=== PATIENT | female | born 1995 | race Two or more races ===

== ENCOUNTER 2020-11-17 17:42 | Inpatient (IN) | payer OTHER, MEDICAID ==
[~2020-11-17] VITALS: Ht 157.5 cm; Wt 52.6 kg
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
--- NOTE | 2020-11-17 17:55 | NUR ---
JG JACOBSEN AT BEDSIDE
--- NOTE | 2020-11-17 18:23 | NUR ---
CALLED DR. BONILLA SPEAKING WITH DR. NASH.
--- NOTE | 2020-11-17 18:39 | NUR ---
TEXTED DR. GODINEZ FOR MRI APPROVAL.
--- NOTE | 2020-11-17 19:09 | NUR ---
REPORT GIVEN TO MAURA ARZOLA FOR YA
--- NOTE | 2020-11-17 20:15 | NUR ---
[phone] Pt Father Al
--- NOTE | 2020-11-17 20:16 | NUR ---
PT ABLE TO MOVE LOWER EXT, STATING SHE IS UNABLE TO AMBULATE. MD AWARE.
[2020-11-17 20:32] LABS: BASOPHILS # (AUTO) 0.1 /CMM (0.0-0.2); BASOPHILS % (AUTO) 0.5 % (0.0-2.0); EOSINOPHILS % (AUTO) 0.4 % (0.0-6.0); HEMATOCRIT 39 % (33-45); LYMPHOCYTES # (AUTO) 2.2 /CMM (0.8-4.8); LYMPHOCYTES % (AUTO) 18.7 % (20.0-44.0); MEAN CORPUSCULAR HGB CONC 33 g/dl (31.0-36.0); MEAN CORPUSCULAR VOLUME 89 fL (82-100); MONOCYTES # (AUTO) 0.7 /CMM (0.1-1.30); MONOCYTES % (AUTO) 5.7 % (2.0-12.0); NEUTROPHILS # (AUTO) 8.6 /CMM (1.8-8.9); NEUTROPHILS % (AUTO) 74.7 % (43.0-81.0); PLATELET COUNT (AUTO) 294 /CMM (150-450); RED BLOOD CELL COUNT(AUTO) 4.41 MIL/uL (4.0-5.2); WHITE BLOOD COUNT (AUTO) 11.5 K/uL (4.3-11.0)
[2020-11-17 20:42] LABS: CALCIUM, SERUM 9.4 mg/dL (8.5-10.1); CREATININE 0.9 mg/dL (0.6-1.3); MAGNESIUM 2.1 mg/dL (1.8-2.4); POTASSIUM 3.2 mmol/L (3.5-5.1)
[2020-11-17] MEDS ORDERED: POTASSIUM CHLORIDE 20 MEQ TAB.PRT.SR PO ONE ×2 (21:29→21:30)
--- NOTE | 2020-11-17 22:10 | NUR ---
ROMARIOID SWABBED, SENT TO LAB.
--- NOTE | 2020-11-17 22:10 | NUR ---
PT IN BED CRYING, STATING "I DO NOT UNDERSTAND WHY I CAN NOT WALK" PT AWARE SHE WILL BE ADMITTED.
[2020-11-17] MEDS ORDERED: ACETAMINOPHEN 325 MG TABLET PO PRN (22:30)
[2020-11-17] MEDS ORDERED: Z GUARD REMEDY 2 OZ OINT TP PRN (22:30)
[2020-11-17] MEDS ORDERED: ONDANSETRON HCL/PF 4 MG/2 ML VIAL IVP PRN (22:30)
[2020-11-17] MEDS ORDERED: MAG HYDROX/AL HYDROX/SIMETH 30 ML UDC PO PRN (22:30)
[2020-11-17] MEDS ORDERED: MAGNESIUM HYDROXIDE 30 ML UDC PO PRN (22:30)
--- NOTE | 2020-11-17 23:00 | NUR ---
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
--- NOTE | 2020-11-17 23:14 | NUR ---
PT ASKED TO AMBULATE TO THE RESTROOM. WHILE TRYING TO HELP PT AMBULATED OUT OF THE BED, PT WAS ABLE TO MOVE HER LEGS (WHILE ON THE BED). ONCE PT HAD HER LEGS OFF THE BED SHE CRIED AND STATED "OH MY GOD, WHY IS THIS HAPPENING TO ME, I CAN NOT USE MY LEGS, THEY ARE NUMB." PT WAS GIVEN A BED MATTA IN BED. REMAINS ON MONITOR AND PULSE OX. VSS.
--- NOTE | 2020-11-17 23:53 | NUR ---
NURA TECHNICAL SPEC AT BEDSIDE
[2020-11-18] MEDS ORDERED: HYDROCODONE/APAP 5/325MG TABLET ONE ×2 (00:36→10:44)
[2020-11-18] MEDS: IV NS 0.9% 1,000 ML IV PRN (00:38)
[2020-11-18] MEDS: HYDROCODONE/APAP 5/325MG TABLET PO PRN ×3 (00:45→13:47)
--- NOTE | 2020-11-18 04:41 | NUR ---
PT PULLED OUT IV. STATED SHE DOES NOT NEED IV FLUIDS.
[2020-11-18 04:55] LABS: BASOPHILS % (AUTO) 0.3 % (0.0-2.0); HEMATOCRIT 40 % (33-45); HEMOGLOBIN 13.1 g/dL (11.5-14.8); LYMPHOCYTES # (AUTO) 3.4 /CMM (0.8-4.8); LYMPHOCYTES % (AUTO) 22.7 % (20.0-44.0); MEAN CORPUSCULAR HGB CONC 33 g/dl (31.0-36.0); MEAN CORPUSCULAR VOLUME 89 fL (82-100); MONOCYTES # (AUTO) 0.8 /CMM (0.1-1.30); MONOCYTES % (AUTO) 5.5 % (2.0-12.0); NEUTROPHILS # (AUTO) 10.6 /CMM (1.8-8.9); NEUTROPHILS % (AUTO) 71.5 % (43.0-81.0); PLATELET COUNT (AUTO) 311 /CMM (150-450); RED BLOOD CELL COUNT(AUTO) 4.46 MIL/uL (4.0-5.2); WHITE BLOOD COUNT (AUTO) 14.8 K/uL (4.3-11.0)
[2020-11-18 05:32] LABS: CALCIUM, SERUM 9.2 mg/dL (8.5-10.1); CREATININE 0.8 mg/dL (0.6-1.3); PHOSPHORUS 3.8 mg/dL (2.5-4.9)
--- NOTE | 2020-11-18 07:32 | NUR ---
ENDORSEMENT RECEIVED FROM MAURA ARZOLA FOR YA
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
[2020-11-18] MEDS: LORAZEPAM INJ 2 MG/ML VIAL IV PRN (15:17)
[2020-11-18] MEDS ORDERED: LORAZEPAM INJ 2 MG/ML VIAL ONE (15:19)
--- NOTE | 2020-11-18 15:57 | NUR ---
DR MANCILLA NEUROLOGIST AT BEDSIDE FOR EVAL
--- NOTE | 2020-11-18 16:26 | NUR ---
SS consult received. SW attempted to meet with pt., however, pt. was agitate and not cooperative with SW interview. SW will try again at a later time. SW will follow up to obtain report information.
--- NOTE | 2020-11-18 19:27 | NUR ---
REPORT GIVEN TO JUDIE ARZOLA FOR YA
--- NOTE | 2020-11-18 19:57 | NUR ---
PATIENT C/O STOMACH BURNING.
[2020-11-18] MEDS ORDERED: MAG HYDROX/AL HYDROX/SIMETH 30 ML UDC ONE (19:58)
--- NOTE | 2020-11-18 20:43 | NUR ---
PATIENT DENIES ANY BURNING OF THE STOMACH.
--- NOTE | 2020-11-18 22:11 | NUR ---
PATIENT USED THE BEDPAN FOR URINATION.
--- NOTE | 2020-11-18 23:41 | NUR ---
PATIENT IS ANXIOUS. PATIENT REFUSED PRN ATIVAN. PT STATES, "I HATE THE WAY IT MAKES ME FEEL".
--- NOTE | 2020-11-19 01:03 | NUR ---
PATIENT IS ARGUING WITH PATIENT IN BED 10. PATIENT DEESCALATED.
--- NOTE | 2020-11-19 04:30 | NUR ---
PATIENT IS ASLEEP. EASILY AROUSABLE THROUGH VOICE. PATIENT IS BREATHING EVENLY AND UNLABORED ON ROOM AIR. CONNECTED TO THE WASHATERIA ATTENDANT. CALL LIGHT AND PERSONAL ITEMS WITHIN REACH. BED AT THE LOWEST POSITION. WILL CONTINUE TO MONITOR PATIENT CLOSELY.
--- NOTE | 2020-11-19 07:21 | NUR ---
RECEIVED REPORT FROM NESS DIMAS FOR YA. PT ASLEEP ON BED EASILY AROUSABLE, NOT IN RESPIRATORY DISTRESS, V/S STABLE, KEPT RESTED AND COMFORTABLE. WILL CONTINUE TO MONITOR.
--- NOTE | 2020-11-19 07:38 | NUR ---
REPORT GIVEN TO YOHANA ARZOLA FOR YA.
[2020-11-19] MEDS ORDERED: LORAZEPAM INJ 2 MG/ML VIAL ONE (09:50)
[2020-11-19] MEDS: IV NS 0.9% 1,000 ML IV PRN (09:56)
[2020-11-19] MEDS: LORAZEPAM INJ 2 MG/ML VIAL IV PRN (09:56)
--- NOTE | 2020-11-19 10:12 | NUR ---
CALLED [employer] PSYCHOLOGIST MILITARY PERSONNEL FOR PT DISCHARGED IN CUSTODY. WILL SENT POLICE FOR BOOKING
--- NOTE | 2020-11-19 10:56 | NUR ---
IV removed. Catheter intact and site benign. Pressure and 4x4 applied to site. No bleeding noted. Patient discharged to home in stable condition. Written and verbal after care instructions given. Patient verbalizes understanding of instruction.
[2020-11-19 10:57] VITALS: BP 120/70
--- NOTE | 2020-11-19 11:59 | NUR ---
Tile Burner consult: SW consult requested by ER staff for a 53year old male. SW met with pt at ER bed 12 and conducted an assessment at 1000 am. Pt is Macanese speaking and MARTIR Kimball) assisted as the machined parts metal sprayer. Pt made good eye contact during the assessment. Pt. alert and oriented x4 ( time, place, self, and situation). Pt appears to be in an anxious mood with distressed affect. Pt.'s speech is within normal limits. Patient states he is seeking medical attention for ETOH abuse. Pt. denies suicidal and homicidal ideation. Pt denies any visual or auditory hallucinations as well. Pt. stated he has no Hx. mental health & no psychotropic medications. Pt states drinking heavy for quite some time. Pt states his preference of alcohol is liquor and drinks 1 bottle a day. Pt. appear groomed and has appropriate clothing. Pt. appears to be ambulatory with a steady gait. Pt phone number cell phone number is ([phone]). Pt is and has three children with the ages of (19,14,11). Pt is currently living with [id number]. Pt is currently employed and does richie. Pt agrees to having an addiction issue with ETOH and agrees seeking treatment. Pt states trigger is the passing of his parents recently which cased him to go ion a drinking binge. Pt also states he would go on a drinking binge every 2 months. Pt states he is willing to go to [facility] ([address] [place] [address], ). MARTIR also gave additional substance abuse resource packet. MARTIR provided the pt with a brief substance abuse intervention with referrals to substance abuse programs; [facility] Substance Abuse Self-help line ([phone]); [facility] [address] [place] [address] ([phone]); [place] [address] ([phone]); [facility] Rehabilitation program ([phone]; [facility] ([phone]); [facility] ([phone]); [facility] ([phone]). Plan: Pt. was given the appropriate resources with the substance abuse packet. MARTIR has faxed the referral to [facility] ([address] [place] [address], ). MARTIR will follow up with the patient and awaiting the the [facility] center approval. Addendum: 11/19/20 at 1227 by INA MCMAHAN Wrong pt. Please Disregard Social Service consult
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
== END 2020-11-19 10:59 | disposition home or self-care (01) | DRG 951 ==
LOC: ER 17:49 → TRANSITION 23:39
PROVIDERS: ADMIT Nurse Practitioner Acute Care
DX: Z76.5 Malingerer [conscious simulation] (principal); E87.6 Hypokalemia; F41.9 Anxiety disorder, unspecified; D72.829 Elevated white blood cell count, unspecified; J45.909 Unspecified asthma, uncomplicated; Y09 Assault by unspecified means; R53.1 Weakness; Z20.822 Contact with and (suspected) exposure to COVID-19
CPT/HCPCS: 36415; 70450-TC; 72125-TC; 80048-TC; 82550-TC; 83735-TC; 84100-TC; 84702-TC; 85025-TC; 87081-TC; C9803; G0378; J2060; J2405; J7030